=== PATIENT | female | born 1975 | race Asian ===

== ENCOUNTER 2017-01-28 07:58 | Outpatient (CLI) | payer OTHER ==
[~2017-01-28 07:58] MED LIST: GLIP10TA55 PO; LISI20TA24 PO; METF500T PO
[2017-01-28 08:48] LABS: POTASSIUM 3.7 mmol/L (3.6-5.2); SODIUM 136 mmol/L (136-145)
== END 2017-01-28 20:24 | disposition home or self-care (01) ==
LOC: LABW 07:58
PROVIDERS: Family Medicine
DX: E13.65 Other specified diabetes mellitus with hyperglycemia (principal); E05.90 Thyrotoxicosis, unspecified without thyrotoxic crisis or storm
CPT/HCPCS: 36415; 80053; 81000; 83036; 84439; 84443; 84480

== ENCOUNTER 2017-05-10 18:10 | Observation (INO) | payer OTHER ==
[~2017-05-10] VITALS: Ht 154.9 cm; Wt 96.4 kg
[2017-05-10 21:02] LABS: PLATELET COUNT 330 K/uL (152-353)
[2017-05-10 22:45] LABS: POTASSIUM 3.2 mmol/L (3.6-5.2); SODIUM 135 mmol/L (136-145)
[2017-05-11 04:00] VITALS: BP 139/73; TEMP 98.6
[2017-05-11 04:03] VITALS: BP 166/96; TEMP 98.7; Ht 154.9 cm; Wt 96.4 kg
[2017-05-11] MEDS ORDERED: INSU100I2 SC (06:07)
[2017-05-11] MEDS ORDERED: PROTONIX20 MG PO (06:12)
[2017-05-11] MEDS ORDERED: AMLO2.5T PO (06:14)
[2017-05-11] MEDS ORDERED: TRULICITY0.75 MG/0. SC (06:16)
[2017-05-11 08:00] VITALS: BP 133/74; TEMP 97.8
--- NOTE | 2017-05-11 10:47 | NUR ---
1050 PT LEFT WITH FAMILY. NO DISTRESSNOTED
== END 2017-05-11 10:50 | disposition home or self-care (01) ==
LOC: MED/SURG 18:10
PROVIDERS: ADMIT Family Medicine
DX: E86.0 Dehydration (principal); E13.65 Other specified diabetes mellitus with hyperglycemia; I10 Essential (primary) hypertension; R11.2 Nausea with vomiting, unspecified; R19.7 Diarrhea, unspecified
CPT/HCPCS: 36415; 36591; 80053; 82550; 82948; 84484; 85027; 85610; 85730; 93005; 94760; 96360; 96361; 99220; G0378; G0379

== ENCOUNTER 2017-05-13 15:28 | Outpatient (CLI) | payer OTHER ==
[~2017-05-13 15:28] MED LIST changes: +AMLO2.5T PO; +INSU100I2 SC; +PROTONIX20 MG PO; +TRULICITY0.75 MG/0. SC
[2017-05-13 15:41] LABS: POTASSIUM 3.9 mmol/L (3.6-5.2); SODIUM 138 mmol/L (136-145)
[2017-05-13 15:44] LABS: PLATELET COUNT 330 K/uL (152-353)
== END 2017-05-13 19:16 | disposition home or self-care (01) ==
LOC: LAB 15:28
PROVIDERS: Family Medicine
DX: R00.2 Palpitations (principal)
CPT/HCPCS: 80053; 83735; 85027

== ENCOUNTER 2017-10-03 15:07 | Emergency (ER) | payer OTHER ==
[~2017-10-03] VITALS: Ht 154.9 cm; Wt 86.2 kg
[2017-10-03 16:10] LABS: PLATELET COUNT 301 K/uL (152-353)
[2017-10-03 16:16] LABS: POTASSIUM 4.1 mmol/L (3.6-5.2); SODIUM 134 mmol/L (136-145)
[2017-10-03 19:35] VITALS: BP 168/94; TEMP 98.1
== END 2017-10-03 19:36 | disposition home or self-care (01) ==
LOC: ED 15:07
PROVIDERS: Emergency Medicine
DX: D25.9 Leiomyoma of uterus, unspecified (principal)
CPT/HCPCS: 36415; 80053; 81000; 81025; 82150; 83690; 85027; 99283; Q9963

== ENCOUNTER 2017-10-26 15:04 | Outpatient (CLI) | payer OTHER | END 2017-10-26 19:41 | disposition home or self-care (01) | LOC: US 15:04 | DX: D25.1 Intramural leiomyoma of uterus (principal) ==

== ENCOUNTER 2018-03-30 10:20 | Outpatient (CLI) | payer OTHER ==
[2018-03-30 10:47] LABS: PLATELET COUNT 330 K/uL (152-353)
[2018-03-30 11:01] LABS: POTASSIUM 3.6 mmol/L (3.6-5.2)
== END 2018-03-30 19:29 | disposition home or self-care (01) ==
LOC: LABW 10:20
PROVIDERS: Family Medicine
DX: E11.65 Type 2 diabetes mellitus with hyperglycemia (principal); E78.2 Mixed hyperlipidemia; E55.9 Vitamin D deficiency, unspecified; R53.83 Other fatigue
CPT/HCPCS: 36415; 80053; 80061; 81000; 82306; 82607; 83036; 84443; 85027

== ENCOUNTER 2021-01-14 14:41 | Outpatient (CLI) | payer OTHER | END 2021-01-14 23:00 | disposition home or self-care (01) | LOC: INF 14:41 | PROVIDERS: ATTEND Internal Medicine | DX: Z23 Encounter for immunization (principal) | CPT/HCPCS: 96372 ==

== ENCOUNTER 2021-02-05 13:44 | Outpatient (CLI) | payer OTHER | END 2021-02-05 19:56 | disposition home or self-care (01) | LOC: INF 13:44 | PROVIDERS: ATTEND Internal Medicine | DX: Z23 Encounter for immunization (principal) | CPT/HCPCS: 96372 ==

== ENCOUNTER 2021-05-06 10:41 | Emergency (ER) | payer OTHER ==
[~2021-05-06] VITALS: Ht 154.9 cm; Wt 98.9 kg
[2021-05-06 11:30] VITALS: BP 158/87; TEMP 97.6
== END 2021-05-06 11:30 | disposition home or self-care (01) ==
LOC: ED 10:41
DX: S00.83XA Contusion of other part of head, initial encounter (principal); W01.198A Fall on same level from slipping, tripping and stumbling with subsequent striking against other object, initial encounter; Y92.098 Other place in other non-institutional residence as the place of occurrence of the external cause
CPT/HCPCS: 99281

== ENCOUNTER 2021-12-29 09:05 | Outpatient (CLI) | payer OTHER | END 2021-12-29 19:00 | disposition home or self-care (01) | LOC: LAB 09:05 | PROVIDERS: ATTEND Nurse Practitioner Family | DX: R80.8 Other proteinuria (principal) | CPT/HCPCS: 82043; 82570; 84156 ==

== ENCOUNTER 2022-01-07 08:44 | Outpatient (CLI) | payer OTHER | END 2022-01-07 19:57 | disposition home or self-care (01) | LOC: US 08:44 | PROVIDERS: ATTEND Nurse Practitioner Family | DX: R80.8 Other proteinuria (principal) ==

== ENCOUNTER 2022-02-02 08:17 | Outpatient (CLI) | payer OTHER ==
[2022-02-02 09:01] LABS: POTASSIUM 3.8 mmol/L (3.6-5.2)
== END 2022-02-02 18:51 | disposition home or self-care (01) ==
LOC: LABW 08:17
PROVIDERS: ATTEND Student in an Organized Health Care Education/Training Program
DX: I12.9 Hypertensive chronic kidney disease with stage 1 through stage 4 chronic kidney disease, or unspecified chronic kidney disease (principal); N18.2 Chronic kidney disease, stage 2 (mild); D63.1 Anemia in chronic kidney disease; E11.21 Type 2 diabetes mellitus with diabetic nephropathy; E79.0 Hyperuricemia without signs of inflammatory arthritis and tophaceous disease; R80.9 Proteinuria, unspecified; N25.81 Secondary hyperparathyroidism of renal origin; E55.9 Vitamin D deficiency, unspecified
CPT/HCPCS: 36415; 80053; 80074; 81000; 82306; 82570; 83036; 83516; 83970; 84156; 84165; 86160; 86255; 86592; 86701; 86702; 87389

== ENCOUNTER 2022-06-01 07:54 | Outpatient (CLI) | payer OTHER ==
[2022-06-01 08:28] LABS: PLATELET COUNT 342 K/uL (152-353)
[2022-06-01 08:40] LABS: POTASSIUM 3.9 mmol/L (3.6-5.2)
== END 2022-06-01 20:54 | disposition home or self-care (01) ==
LOC: LABW 07:54
PROVIDERS: ATTEND Student in an Organized Health Care Education/Training Program
DX: I12.9 Hypertensive chronic kidney disease with stage 1 through stage 4 chronic kidney disease, or unspecified chronic kidney disease (principal); N18.2 Chronic kidney disease, stage 2 (mild); D63.1 Anemia in chronic kidney disease; E11.21 Type 2 diabetes mellitus with diabetic nephropathy; E79.0 Hyperuricemia without signs of inflammatory arthritis and tophaceous disease; R80.8 Other proteinuria; N25.81 Secondary hyperparathyroidism of renal origin; E55.9 Vitamin D deficiency, unspecified
CPT/HCPCS: 36415; 80053; 80074; 81002; 82306; 82570; 83036; 83516; 83735; 83970; 84100; 84156; 84550; 85027; 86037; 86592; 86701; 86702; 87389

== ENCOUNTER 2022-11-08 08:00 | Outpatient (CLI) | payer OTHER | END 2022-11-08 19:21 | disposition home or self-care (01) | LOC: MRI 08:00 | PROVIDERS: ATTEND Nurse Practitioner Primary Care | DX: Z12.31 Encounter for screening mammogram for malignant neoplasm of breast (principal) ==

== ENCOUNTER 2023-06-03 13:40 | Outpatient (CLI) | payer OTHER | END 2023-06-03 20:27 | disposition home or self-care (01) | LOC: MRI 13:40 | PROVIDERS: ATTEND Nurse Practitioner Family | DX: M54.16 Radiculopathy, lumbar region (principal) ==

== ENCOUNTER 2023-08-08 11:01 | Outpatient (CLI) | payer OTHER | END 2023-08-08 18:54 | disposition home or self-care (01) | LOC: RESP 11:01 | PROVIDERS: ATTEND Nurse Practitioner Family | DX: I10 Essential (primary) hypertension (principal) ==